=== PATIENT | female | born 1940 | race Caucasian/White ===

== ENCOUNTER 2017-10-11 19:00 | Emergency (ER) | payer MEDICARE, OTHER ==
[2017-10-11] MEDS ORDERED: ASPIRIN 81 MG TABLET, CHEWABLE PO ONE (19:28)
--- NOTE | 2017-10-11 19:28 | ER Document Report ---
ED General - General Chief Complaint: Chest Pain > 30 Stated Complaint: CHEST PAIN Time Seen by Provider: 10/11/17 19:27 Notes: Patient is a 77 year old female who presents to the ED complaining of sudden onset chest pressure with associated shortness of breath 1 hour prior to arrival while she is cooking dinner. Describes it as a 4 out of 5 in severity. She denies any cough, burning pain, substernal pain. She denies any wheezing or history of lung disease. she states that she took 1 sublingual nitro which brought her symptoms down to 2 out of 5 prior to my introduction she is now symptom-free. She states that she was not doing anything exertional to standing in her kitchen cooking. Past medical history significant for an KS in September 2016 required coronary cath and stent placement, this was completed in [place]. She is also on Brilinta. Patient recently moved down here in June Past medical history significant for coronary artery disease history with an KS in September 2016, insulin-dependent diabetes, hypertension, hyperlipidemia Past surgical history significant for previous low back surgery, previous renal procedure, coronary cath in 2016, cholecystectomy Social history denies any tobacco, alcohol or drug use Primary care is with Cyrus Franco. Labor Expediter is Chen Herrera TRAVEL OUTSIDE OF THE U.S. IN LAST 30 DAYS: No - Related Data Allergies/Adverse Reactions: Sulfa (Sulfonamide Antibiotics) Allergy (Verified 10/11/17 19:01) Past Medical History - Social History Smoking Status: Never Smoker Family History: Reviewed & Not Pertinent Review of Systems - Review of Systems Constitutional: No symptoms reported Cardiovascular: See HPI Respiratory: See HPI Gastrointestinal: No symptoms reported Musculoskeletal: No symptoms reported Neurological/Psychological: No symptoms reported -: Yes All other systems reviewed and negative Physical Exam - Vital signs Vitals: Pulse Resp Pulse Ox 84 18 100 10/11/17 19:03 10/11/17 19:03 10/11/17 19:03 - Notes Notes: PHYSICAL EXAM GENERAL: Alert, interacts well. HEAD: Normocephalic, atraumatic. EYES: Pupils equal, round, and reactive to light. Extraocular movements intact. ENT: Oral mucosa moist, tongue midline. NECK: Full range of motion. Supple. Trachea midline. LUNGS: Clear to auscultation bilaterally, no wheezes, rales, or rhonchi. No respiratory distress. HEART: Regular rate and rhythm. No murmurs, gallops, or rubs. ABDOMEN: Soft, nondistended, nontender. No guarding, rebound, or rigidity.. Bowel sounds present in all 4 quadrants. EXTREMITIES: Moves all 4 extremities spontaneously. No edema, radial and dorsalis pedis pulses 2/4 bilaterally. No cyanosis. NEUROLOGICAL: Alert and oriented x4. Normal speech. PSYCH: Normal affect, normal mood. SKIN: Warm, dry, normal turgor. No rashes or lesions noted. Course - Re-evaluation Re-evalutation: 10/11/17 19:41 Patient is a 77-year-old female who is hemodynamically stable, no acute distress and afebrile. Patient initially was chest pressure 2 out of 5 in severity after sublingual nitro at home. Upon revisitation prior to additional nitro administration, patient states that she is now completely chest pain- free. Patient was given dose of aspirin. Discussed patient with hospitalist Dr. Roberts who is requesting repeat troponins prior to admission. Discussed with patient to alert us if she has return of symptoms. 10/11/17 23:56 Patient remains chest pain-free. Repeat troponin elevated at 0.131. Discussed with admitting hospitalist and due to the fact we do not have cardiology transition social worker for access to the [employer] at our facility, patient will require transport for non-STEMI. 10/12/17 00:23 Patient has been accepted to [facility] under Dr Beard. Will initiate lovenox, lipotor and give her night brilinta. Bed status pending. 10/12/17 02:20 Transport has arrived for the patient. Upon my reassessment, she denies any shortness of breath, chest pressure. Lungs are clear to auscultation without any alarms noted on telemetry. Patient is stable for transport - Vital Signs Vital signs: Temp Pulse Resp BP Pulse Ox 97.6 F 80 19 124/61 97 10/11/17 19:10 10/11/17 19:10 10/12/17 02:01 10/12/17 02:01 10/12/17 02:01 - Laboratory Result Diagrams: 10/11/17 19:34 10/11/17 19:34 Laboratory results interpreted by me: 10/11/17 10/11/17 19:34 19:34 Seg Neutrophils % 38.5 L Monocytes % 14.0 H Est GFR (Non-Af Amer) 51 L Glucose 180 H Creatine Kinase 177 H - Diagnostic Test Radiology reviewed: Image reviewed, Reports reviewed - EKG Interpretation by Me EKG shows normal: Sinus rhythm Rate: Normal Rhythm: NSR [place]/QRS: RBBB When compared to previous EKG there are: Previous EKG unavailable - Patient new to our facility Discharge - Discharge Clinical Impression: Non-STEMI (non-ST elevated myocardial infarction) Condition: Stable Disposition: [facility] Referrals: CYRUS FRANCO NP [Primary Care Provider] - Follow up as needed
[2017-10-11] MEDS ORDERED: NITROGLYCERIN 0.4 MG/TAB 25 TAB/BOTTLE SL PRN (19:40)
[2017-10-11 19:48] LABS: ABSOLUTE BASOPHILS # (AUTO) 0.1 10^3/uL (0.0-0.2); ABSOLUTE EOSINOPHILS # (AUTO) 0.2 10^3/uL (0.0-0.6); ABSOLUTE LYMPHOCYTES (AUTO) 2.5 10^3/uL (0.5-4.7); ABSOLUTE MONOCYTES (AUTO) 0.8 10^3/uL (0.1-1.4); ABSOLUTE NEUT (AUTO) 2.2 10^3/uL (1.7-8.2); BASOPHILS % (AUTO) 1.1 % (0-2); EOSINOPHILS % (AUTO) 3.7 % (0-6); HEMATOCRIT 36.3 % (36.0-47.0); HEMOGLOBIN 12.2 g/dL (12.0-15.5); LYMPHOCYTES % (AUTO) 42.7 % (13-45); MEAN CORPUSCULAR HEMOGLOBIN 30.8 pg (27.0-33.4); MEAN CORPUSCULAR HGB CONC 33.6 g/dL (32.0-36.0); MEAN CORPUSCULAR VOLUME 92 fl (80-97); PLATELET COUNT 266 10^3/uL (150-450); RED BLOOD COUNT 3.95 10^6/uL (3.72-5.28); RED CELL DISTRIBUTION WIDTH 13.7 % (11.5-14.0); SEGMENTED NEUTROPHILS % (AUTO) 38.5 % (42-78); TOTAL CELLS COUNTED % (AUTO) 100 %; WHITE BLOOD COUNT 5.8 10^3/uL (4.0-10.5)
[2017-10-11 20:05] LABS: ALANINE AMINOTRANSFERASE 33 U/L (9-52); ALBUMIN 4.5 g/dL (3.5-5.0); ALKALINE PHOSPHATASE 63 U/L (38-126); ANION GAP 9 (5-19); ASPARTATE AMINO TRANSFERASE 28 U/L (14-36); BILIRUBIN,DIRECT 0.2 mg/dL (0.0-0.4); BILIRUBIN,TOTAL 0.3 mg/dL (0.2-1.3); BLOOD UREA NITROGEN 19 mg/dL (7-20); CALCIUM 9.9 mg/dL (8.4-10.2); CARBON DIOXIDE 29 mmol/L (22-30); CHLORIDE 101 mmol/L (98-107); CREATINE KINASE 177 U/L (30-135); GLUCOSE 180 mg/dL (75-110); POTASSIUM 4.6 mmol/L (3.6-5.0); SODIUM 138.5 mmol/L (137-145); TOTAL PROTEIN 7.5 g/dL (6.3-8.2)
--- NOTE | 2017-10-11 20:06 | RADIOLOGY REPORT (SQ) ---
EXAM DESCRIPTION: CHEST SINGLE VIEW COMPLETED DATE/TIME: 10/11/2017 7:57 pm REASON FOR STUDY: chest pain COMPARISON: None. EXAM PARAMETERS: NUMBER OF VIEWS: One view. TECHNIQUE: Single frontal radiographic view of the chest acquired. RADIATION DOSE: NA LIMITATIONS: None. FINDINGS: LUNGS AND PLEURA: No opacities, masses or pneumothorax. No pleural effusion. MEDIASTINUM AND HILAR STRUCTURES: No masses. Contour normal. HEART AND VASCULAR STRUCTURES: Heart normal in size. Normal vasculature. BONES: No acute findings. HARDWARE: Median sternotomy wires are present. A curvilinear hyperdensity projecting in the midline over the superior mediastinum is of uncertain etiology or significance. OTHER: No other significant finding. IMPRESSION: NO ACUTE RADIOGRAPHIC FINDING IN THE CHEST. A curvilinear density projecting over the s uperior mediastinum in the midline is of uncertain etiology or significance. TECHNICAL DOCUMENTATION: JOB ID: [id number] [employer]- All Rights Reserved
[2017-10-11 20:17] LABS: CREATINE KINASE MB 2.66 ng/mL (<4.55); TROPONIN I 0.021 ng/mL
[2017-10-12] MEDS ORDERED: ATORVASTATIN CALCIUM 80 MG TABLET PO ONE (00:16)
[2017-10-12] MEDS ORDERED: TICAGRELOR 90 MG TABLET PO SCH (00:30)
[2017-10-12] MEDS ORDERED: ENOXAPARIN SODIUM INJ 80 MG/0.8 ML DISP.SYRIN SUBCUT SCH (00:30)
[2017-10-12] MEDS ORDERED: TICAGRELOR 90 MG TABLET ONE (01:29)
[2017-10-12 02:26] VITALS: BP 124/61
--- NOTE | 2017-10-12 08:37 | EKG REPORT ---
SEVERITY:- ABNORMAL ECG - SINUS RHYTHM RIGHT BUNDLE BRANCH BLOCK : Confirmed by: Pedro Noriega MD 12-Oct-2017 08:35:45
== END 2017-10-12 02:35 | disposition short-term general hospital (02) ==
LOC: ER 19:00
DX: I21.4 Non-ST elevation (NSTEMI) myocardial infarction (principal); R07.9 Chest pain, unspecified; R06.02 Shortness of breath; I25.10 Atherosclerotic heart disease of native coronary artery without angina pectoris; I25.2 Old myocardial infarction; E11.9 Type 2 diabetes mellitus without complications; I10 Essential (primary) hypertension; E78.5 Hyperlipidemia, unspecified; Z79.4 Long term (current) use of insulin; Z90.49 Acquired absence of other specified parts of digestive tract
CPT/HCPCS: 93005; 99285; 96372; 36415; 82553; 82550; 85025; 80053; 84484; 71045; 93010; A9270 ×3; J1650; J3490

== ENCOUNTER → 2018-01-05 | Outpatient (CLI) | payer MEDICARE, OTHER ==
[2018-01-05 17:56] LABS: NT PRO BNP 380 pg/mL (<450)
[2018-01-05 18:00] LABS: TROPONIN I < 0.012 ng/mL
== END ==
LOC: OD 16:45
PROVIDERS: ATTEND Obstetrics & Gynecology
DX: R06.02 Shortness of breath (principal); R05 Cough; I25.2 Old myocardial infarction
CPT/HCPCS: 36415; 83880; 84484; 85379

== ENCOUNTER 2018-01-15 11:40 | Emergency (ER) | payer MEDICARE, OTHER ==
[2018-01-15] MEDS ORDERED: ASPIRIN 81 MG TABLET, CHEWABLE PO ONE (11:51)
[2018-01-15] MEDS ORDERED: NITROGLYCERIN/D5W 50 MG/250 ML RTUINJ IV ONE (11:57)
--- NOTE | 2018-01-15 11:57 | ER Document Report ---
ED General - General Chief Complaint: Chest Pain Stated Complaint: CHEST PAIN Time Seen by Provider: 01/15/18 11:51 Mode of Arrival: Ambulatory Information source: Patient, [facility] Records Notes: 77-year-old female presents with severe chest pain midsternal associated with shortness of breath of 3-4 hour duration. Patient denies any fevers or chills denies any nausea vomiting or diarrhea. Patient states she had an NSTEMI approximately 3 months ago Patient took 2 nitroglycerin prior to arrival notes pain has not improved TRAVEL OUTSIDE OF THE [place]. IN LAST 30 DAYS: No - HPI Onset: Just prior to arrival Onset/Duration: Sudden Quality of pain: Pressure Severity: Severe Pain Level: 5 Associated symptoms: Chest pain Exacerbated by: Denies Relieved by: Denies Similar symptoms previously: Yes Recently seen / treated by doctor: Yes - Related Data Allergies/Adverse Reactions: Sulfa (Sulfonamide Antibiotics) Allergy (Verified 01/15/18 12:49) Past Medical History - Social History Smoking Status: Never Smoker Cigarette use (# per day): No Chew tobacco use (# tins/day): No Smoking Education Provided: No Family History: Reviewed & Not Pertinent - Past Medical History Cardiac Medical History: Reports: Hx Heart Attack, Hx Hypertension Endocrine Medical History: Reports: Hx Diabetes Mellitus Type 1 Renal/ Medical History: Denies: Hx Peritoneal Dialysis Past Surgical History: Reports: Hx Cardiac Catheterization - stent x1, Hx Cardiac Surgery - open heart, Hx Cholecystectomy, Hx Kidney (Renal Surgery), Hx Orthopedic Surgery - back Review of Systems - Review of Systems Notes: REVIEW OF SYSTEMS: CONSTITUTIONAL : Denies fever, chills, or sweats. Denies recent illness. EENT: Denies eye, ear, throat, or mouth pain or symptoms. Denies nasal or sinus congestion or discharge. Denies throat, tongue, or mouth swelling or difficulty swallowing. CARDIOVASCULAR: Admits to severe chest pain RESPIRATORY: Denies cough, cold, or chest congestion. Denies shortness of breath, difficulty breathing, or wheezing. GASTROINTESTINAL: Denies abdominal pain or distention. Denies nausea, vomiting , or diarrhea. Denies blood in vomitus, stools, or per rectum. Denies black, tarry stools. Denies constipation. GENITOURINARY: Denies difficulty urinating, painful urination, burning, frequency, blood in urine, or discharge. FEMALE GENITOURINARY: Denies vaginal bleeding, heavy or abnormal periods, irregular periods. Denies vaginal discharge or odor. MUSCULOSKELETAL: Denies back or neck pain or stiffness. Denies joint pain or swelling. SKIN: Denies rash, lesions or sores. HEMATOLOGIC : Denies easy bruising or bleeding. LYMPHATIC: Denies swollen, enlarged glands. NEUROLOGICAL: Denies confusion or altered mental status. Denies passing out or loss of consciousness. Denies dizziness or lightheadedness. Denies headache. Denies weakness or paralysis or loss of use of either side. Denies problems with gait or speech. Denies sensory loss, numbness, or tingling. Denies seizures. PSYCHIATRIC: Denies anxiety or stress. Denies depression, suicidal ideation, or homicidal ideation. ALL OTHER SYSTEMS REVIEWED AND NEGATIVE. PHYSICAL EXAMINATION: GENERAL: Well-appearing, well-nourished and in significant chest pain shortness HEAD: Atraumatic, normocephalic. EYES: Pupils equal round and reactive to light, extraocular movements intact, conjunctiva are normal. ENT: Nares patent, oropharynx clear without exudates. Moist mucous membranes. NECK: Normal range of motion, supple without lymphadenopathy LUNGS: Breath sounds clear to auscultation bilaterally and equal. No wheezes rales or rhonchi. HEART: Regular rate and rhythm without murmurs ABDOMEN: Soft, nontender, nondistended abdomen. No guarding, no rebound. No masses appreciated. Female : deferred Musculoskeletal: Normal range of motion, no pitting or edema. No cyanosis. NEUROLOGICAL: Cranial nerves grossly intact. Normal speech, normal gait. Normal sensory, motor exams PSYCH: Normal mood, normal affect. SKIN: Warm, Dry, normal turgor, no rashes or lesions noted. Dictation was performed using [employer] voice recognition software Physical Exam - Vital signs Vitals: Resp Pulse Ox 17 97 01/15/18 11:54 01/15/18 11:54 Course - Re-evaluation Re-evalutation: 01/15/18 11:56 concern for stemi, pt took 2 nitro , she had nstemi in oct and stent to [place] I called called STEMI hotline new 01/15/18 11:57 CABG, diffuse cardiac disease, severe stent occlusions I will therefore give thrombolytics with patient and husbands permission - Vital Signs Vital signs: Temp Pulse Resp BP Pulse Ox 97.4 F 19 115/91 H 100 01/15/18 12:33 01/15/18 12:36 01/15/18 12:36 01/15/18 12:36 - Laboratory Result Diagrams: 01/15/18 12:00 01/15/18 12:00 Laboratory results interpreted by me: 01/15/18 12:00 Est GFR (Non-Af Amer) 54 L Glucose 217 H - Diagnostic Test Radiology reviewed: Image reviewed - chest xray notes no acute abnormality, Reports reviewed - EKG Interpretation by Me EKG shows normal: Sinus rhythm, [place], Intervals, QRS Complexes, ST-T Waves - ST elevation in lead III minimal elevation in aVF significant depression multiple leads Critical Care Note - Critical Care Note Total time excluding time spent on procedures (mins): 40 Comments: 40 minutes of critical care time spent in direct contact evaluating and reevaluating the patient, treating symptoms, reviewing labs and studies and speaking with family and consultants excluding any procedures Discharge - Discharge Clinical Impression: STEMI (ST elevation myocardial infarction) Qualifiers: Involved coronary artery: unspecified coronary artery Qualified Code(s): I21.3 - ST elevation (STEMI) myocardial infarction of unspecified site Condition: Fair Disposition: [facility] Referrals: CYRUS FRANCO NP [Primary Care Provider] - Follow up as needed
[2018-01-15] MEDS ORDERED: ENOXAPARIN SODIUM INJ 80 MG/0.8 ML DISP.SYRIN SUBCUT ONE (12:10)
[2018-01-15 12:13] LABS: ABSOLUTE BASOPHILS # (AUTO) 0.1 10^3/uL (0.0-0.2); ABSOLUTE EOSINOPHILS # (AUTO) 0.2 10^3/uL (0.0-0.6); ABSOLUTE MONOCYTES (AUTO) 0.9 10^3/uL (0.1-1.4); ABSOLUTE NEUT (AUTO) 6.3 10^3/uL (1.7-8.2); BASOPHILS % (AUTO) 0.7 % (0-2); EOSINOPHILS % (AUTO) 1.8 % (0-6); HEMATOCRIT 37.5 % (36.0-47.0); HEMOGLOBIN 12.9 g/dL (12.0-15.5); LYMPHOCYTES % (AUTO) 20.9 % (13-45); MEAN CORPUSCULAR HGB CONC 34.4 g/dL (32.0-36.0); MEAN CORPUSCULAR VOLUME 90 fl (80-97); MONOCYTES % (AUTO) 9.2 % (3-13); PLATELET COUNT 295 10^3/uL (150-450); RED BLOOD COUNT 4.16 10^6/uL (3.72-5.28); RED CELL DISTRIBUTION WIDTH 13.5 % (11.5-14.0); SEGMENTED NEUTROPHILS % (AUTO) 67.4 % (42-78); TOTAL CELLS COUNTED % (AUTO) 100 %; WHITE BLOOD COUNT 9.4 10^3/uL (4.0-10.5)
--- NOTE | 2018-01-15 12:25 | RADIOLOGY REPORT (SQ) ---
EXAM DESCRIPTION: CHEST SINGLE VIEW COMPLETED DATE/TIME: 01/15/2018 12:15 pm REASON FOR STUDY: chest pain COMPARISON: 10/11/2017 EXAM PARAMETERS: NUMBER OF VIEWS: One view. TECHNIQUE: Single frontal radiographic view of the chest acquired. RADIATION DOSE: NA LIMITATIONS: None. FINDINGS: LUNGS AND PLEURA: No opacities, masses or pneumothorax. No pleural effusion. MEDIASTINUM AND HILAR STRUCTURES: No masses. Contour normal. HEART AND VASCULAR STRUCTURES: Stable cardiomegaly. BONES: No acute findings. HARDWARE: CABG. OTHER: No other significant finding. IMPRESSION: NO ACUTE RADIOGRAPHIC FINDING IN THE CHEST. TECHNICAL DOCUMENTATION: JOB ID: [id number] [employer]- All Rights Reserved Reading location - IP/workstation name: [email or web address]
[2018-01-15 12:40] LABS: ALANINE AMINOTRANSFERASE 22 U/L (9-52); ALKALINE PHOSPHATASE 72 U/L (38-126); ANION GAP 13 (5-19); ASPARTATE AMINO TRANSFERASE 24 U/L (14-36); BILIRUBIN,DIRECT 0.4 mg/dL (0.0-0.4); BILIRUBIN,TOTAL 0.6 mg/dL (0.2-1.3); BLOOD UREA NITROGEN 14 mg/dL (7-20); CALCIUM 9.9 mg/dL (8.4-10.2); CARBON DIOXIDE 29 mmol/L (22-30); CHLORIDE 102 mmol/L (98-107); CREATINE KINASE 82 U/L (30-135); GLUCOSE 217 mg/dL (75-110); POTASSIUM 4.9 mmol/L (3.6-5.0); SODIUM 144.3 mmol/L (137-145); TOTAL PROTEIN 7.3 g/dL (6.3-8.2)
[2018-01-15 12:46] LABS: CREATINE KINASE MB 2.18 ng/mL (<4.55); TROPONIN I 0.025 ng/mL
[2018-01-15 12:48] VITALS: BP 115/91
--- NOTE | 2018-01-15 13:32 | EKG REPORT ---
SEVERITY:- ABNORMAL ECG - SINUS RHYTHM FIRST DEGREE AV BLOCK RIGHT BUNDLE BRANCH BLOCK PROBABLE INFERIOR INFARCT, AGE INDETERMINATE ST DEPRESSION, CONSIDER ISCHEMIA, ANT-LAT LDS : Confirmed by: Pedro Noriega MD 15-Jan-2018 13:31:47
--- NOTE | 2018-01-15 13:32 | EKG REPORT ---
SEVERITY:- ABNORMAL ECG - SINUS RHYTHM RIGHT BUNDLE BRANCH BLOCK PROBABLE INFERIOR INFARCT, AGE INDETERMINATE : Confirmed by: Pedro Noriega MD 15-Jan-2018 13:31:08
[2018-01-15] MEDS ORDERED: ENOXAPARIN SODIUM INJ 30 MG/0.3 ML DISP.SYRIN ONE (14:50)
[2018-01-15] MEDS ORDERED: TENECTEPLASE INJ 50 MG KIT IV ONE (14:50)
[2018-01-15] MEDS ORDERED: NITROGLYCERIN 0.4 MG/TAB 25 TAB/BOTTLE ONE (14:50)
[2018-01-15] MEDS ORDERED: CLOPIDOGREL BISULFATE 75 MG TABLET ONE (14:50)
== END 2018-01-15 12:54 | disposition short-term general hospital (02) ==
LOC: ER 11:40
DX: I21.3 ST elevation (STEMI) myocardial infarction of unspecified site (principal); R07.9 Chest pain, unspecified; R06.02 Shortness of breath; I10 Essential (primary) hypertension; E10.9 Type 1 diabetes mellitus without complications; Z88.2 Allergy status to sulfonamides; I25.2 Old myocardial infarction; Z90.49 Acquired absence of other specified parts of digestive tract
CPT/HCPCS: 93005 ×2; 99291; 96372; 96365; 36415; 82553; 82550; 85025; 80053; 84484; 71045; 93010; J3101; J1650 ×2; J3490; A9270

== ENCOUNTER → 2018-01-23 | Outpatient (CLI) | payer MEDICARE, OTHER ==
--- NOTE | 2018-01-23 12:57 | RADIOLOGY REPORT (SQ) ---
EXAM DESCRIPTION: CHEST PA/LATERAL COMPLETED DATE/TIME: 01/23/2018 12:40 pm REASON FOR STUDY: HEMOPTYSIS,PNEUMONIA, UNSPECIFIED ORGANISM COMPARISON: AP chest 01/15/2018, 10/11/2017 EXAM PARAMETERS: NUMBER OF VIEWS: two views TECHNIQUE: Digital Frontal and Lateral radiographic views of the chest acquired. RADIATION DOSE: NA LIMITATIONS: none FINDINGS: LUNGS AND PLEURA: No opacities, masses or pneumothorax. No pleural effusion. MEDIASTINUM AND HILAR STRUCTURES: No masses or contour abnormalities. HEART AND VASCULAR STRUCTURES: No cardiomegaly. Old sternotomy for CABG BONES: No acute findings. HARDWARE: None in the chest. OTHER: No other significant finding. IMPRESSION: NO SIGNIFICANT RADIOGRAPHIC FINDING IN THE CHEST. TECHNICAL DOCUMENTATION: JOB ID: [id number] [employer]- All Rights Reserved Reading location - IP/workstation name: [email or web address]
[2018-01-23 13:08] LABS: HEMATOCRIT 33.9 % (36.0-47.0); HEMOGLOBIN 11.6 g/dL (12.0-15.5); MEAN CORPUSCULAR HEMOGLOBIN 30.6 pg (27.0-33.4); MEAN CORPUSCULAR VOLUME 90 fl (80-97); PLATELET COUNT 329 10^3/uL (150-450); RED BLOOD COUNT 3.78 10^6/uL (3.72-5.28); RED CELL DISTRIBUTION WIDTH 12.9 % (11.5-14.0); WHITE BLOOD COUNT 7.6 10^3/uL (4.0-10.5)
[2018-01-23 13:45] LABS: ALANINE AMINOTRANSFERASE 24 U/L (9-52); ALBUMIN 4.2 g/dL (3.5-5.0); ALKALINE PHOSPHATASE 65 U/L (38-126); ANION GAP 12 (5-19); ASPARTATE AMINO TRANSFERASE 25 U/L (14-36); BILIRUBIN,DIRECT 0.5 mg/dL (0.0-0.4); BILIRUBIN,TOTAL 1.4 mg/dL (0.2-1.3); BLOOD UREA NITROGEN 14 mg/dL (7-20); CALCIUM 9.8 mg/dL (8.4-10.2); CARBON DIOXIDE 33 mmol/L (22-30); CHLORIDE 95 mmol/L (98-107); GLUCOSE 161 mg/dL (75-110); POTASSIUM 4.1 mmol/L (3.6-5.0); SODIUM 139.8 mmol/L (137-145); TOTAL PROTEIN 7.4 g/dL (6.3-8.2)
[2018-01-24 16:53] LABS: EPSTEIN BARR EARLY AG IGG AB <9.0 U/mL (0.0-8.9); EPSTEIN BARR VCA IGG AB >600.0 U/mL (0.0-17.9); EPSTEIN BARR VCA IGM AB <36.0 U/mL (0.0-35.9)
== END ==
LOC: OD 12:05
PROVIDERS: ATTEND Obstetrics & Gynecology
DX: J18.9 Pneumonia, unspecified organism (principal); R04.2 Hemoptysis; I25.10 Atherosclerotic heart disease of native coronary artery without angina pectoris; I25.2 Old myocardial infarction; I50.9 Heart failure, unspecified; R05 Cough; E11.9 Type 2 diabetes mellitus without complications; Z79.4 Long term (current) use of insulin; R53.83 Other fatigue
CPT/HCPCS: 36415; 71046; 80053; 83880; 85027; 86256; 86663; 86664; 86665

== ENCOUNTER 2019-01-15 11:10 | Observation (INO) | payer MEDICARE, OTHER ==
--- NOTE | 2019-01-15 11:54 | ER Document Report ---
ED Medical Screen (RME) - General Chief Complaint: Facial Droop Stated Complaint: WEAKNESS Time Seen by Provider: 01/15/19 11:52 Primary Care Provider: BESS FRANCO MD [Primary Care Provider] - Follow up as needed Mode of Arrival: Ambulatory Information source: Patient Notes: Patient presents complaining of right facial droop that she is uncertain if it started yesterday or may be the day prior. Patient states that this time she did have a mild headache. Patient was sent here from her primary doctor's office for evaluation for possible stroke. 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 Patient does take Brilinta after having an MO with bypass x3 as well as stents. I have greeted and performed a rapid initial assessment of this patient. A comprehensive ED assessment and evaluation of the patient, analysis of test results and completion of the medical decision making process will be conducted by additional ED providers. TRAVEL OUTSIDE OF THE [place] IN LAST 30 DAYS: No - Related Data Allergies/Adverse Reactions: Sulfa (Sulfonamide Antibiotics) Allergy (Verified 01/15/19 11:11) Past Medical History - Social History Chew tobacco use (# tins/day): No Frequency of alcohol use: None Drug Abuse: None - Past Medical History Cardiac Medical History: Reports: Hx Heart Attack, Hx Hypertension Endocrine Medical History: Reports: Hx Diabetes Mellitus Type 1 Renal/ Medical History: Denies: Hx Peritoneal Dialysis Past Surgical History: Reports: Hx Cardiac Catheterization - stent x1, Hx Cardiac Surgery - open heart, Hx Cholecystectomy, Hx Kidney (Renal Surgery), Hx Orthopedic Surgery - back Physical Exam - Vital signs Vitals: Temp Pulse Resp BP Pulse Ox 97.8 F 59 L 15 167/90 H 100 01/15/19 11:20 01/15/19 11:20 01/15/19 11:20 01/15/19 11:20 01/15/19 11:20 - General Notes: Right facial droop, patient unable to close right eye completely Course - Vital Signs Vital signs: Temp Pulse Resp BP Pulse Ox 97.8 F 59 L 15 167/90 H 100 01/15/19 11:20 01/15/19 11:20 01/15/19 11:20 01/15/19 11:20 01/15/19 11:20 Doctor's Discharge - Discharge Referrals: BESS FRANCO MD [Primary Care Provider] - Follow up as needed
--- NOTE | 2019-01-15 12:16 | RADIOLOGY REPORT (SQ) ---
EXAM DESCRIPTION: CT HEAD WITHOUT COMPLETED DATE/TIME: 01/15/2019 12:01 pm REASON FOR STUDY: r facial droop COMPARISON: None. TECHNIQUE: Axial images acquired through the brain without intravenous contrast. Images reviewed wi th bone, brain and subdural windows. Images stored on PACS. All CT scanners at this facility use dose modulation, iterative reconstruction, and/or weight based d osing when appropriate to reduce radiation dose to as low as reasonably achievable (ALARA). [facility]: Dose Right [facility]: CareDose [facility]: Dose Right [facility]: Teradose 4D [facility]: Smart Appreciation Engine RADIATION DOSE: CT Rad equipment meets quality standard of care and radiation dose reduction techniq ues were employed. CTDIvol: 53.2 mGy. DLP: 964 mGy-cm. mGy. LIMITATIONS: None. FINDINGS: VENTRICLES: Age-appropriate. CEREBRUM: No masses. No hemorrhage. No midline shift. Areas of low density in the white matter, gr eatest in the left frontotemporal area consistent with micro-vascular ischemic change, age undetermin ed. CEREBELLUM: No masses. No hemorrhage. No alteration of density. No evidence for acute infarction. EXTRAAXIAL SPACES: Mild age-related involutional change. No fluid collections. No masses. ORBITS AND GLOBE: No intra- or extraconal masses. Normal contour of globe without masses. CALVARIUM: No fracture. PARANASAL SINUSES: No fluid or mucosal thickening. SOFT TISSUES: No mass or hematoma. OTHER: No other significant finding. IMPRESSION: Areas of low density in the white matter, greatest in the left frontotemporal area consi stent with micro-vascular ischemic change, age undetermined, given lack of comparison images cannot e xclude subacute lacunar infarct. Consider MRI to further assess. No hemorrhage. No midline shift. EVIDENCE OF ACUTE STROKE: Possible LEFT MCA TECHNICAL DOCUMENTATION: JOB ID: [id number] Quality ID # [id number]: Final reports with documentation of one or more dose reduction techniques (e.g., Au tomated exposure control, adjustment of the mA and/or kV according to patient size, use of iterative reconstruction technique) 2010 [employer]- All Rights Reserved Reading location - IP/workstation name: [email or web address]
--- NOTE | 2019-01-15 12:26 | RADIOLOGY REPORT (SQ) ---
EXAM DESCRIPTION: CHEST SINGLE VIEW COMPLETED DATE/TIME: 01/15/2019 12:06 pm REASON FOR STUDY: r facial droop COMPARISON: 01/23/2018 NUMBER OF VIEWS: One view. TECHNIQUE: Single frontal radiographic view of the chest acquired. LIMITATIONS: None. FINDINGS: LUNGS AND PLEURA: No acute opacities, masses or pneumothorax. No pleural effusion. MEDIASTINUM AND HILAR STRUCTURES: Stable contour. HEART AND VASCULAR STRUCTURES: Heart normal in size. Normal vasculature. Prior CABG. BONES: No acute findings. HARDWARE: CABG hardware. OTHER: No other significant finding. IMPRESSION: No acute findings. TECHNICAL DOCUMENTATION: JOB ID: [id number] 2010 [employer]- All Rights Reserved Reading location - IP/workstation name: [email or web address]
[2019-01-15 12:46] LABS: ABSOLUTE BASOPHILS # (AUTO) 0.1 10^3/uL (0.0-0.2); ABSOLUTE EOSINOPHILS # (AUTO) 0.4 10^3/uL (0.0-0.6); ABSOLUTE LYMPHOCYTES (AUTO) 2.3 10^3/uL (0.5-4.7); ABSOLUTE MONOCYTES (AUTO) 0.8 10^3/uL (0.1-1.4); ABSOLUTE NEUT (AUTO) 2.3 10^3/uL (1.7-8.2); BASOPHILS % (AUTO) 1.3 % (0-2); EOSINOPHILS % (AUTO) 6.9 % (0-6); HEMATOCRIT 40.2 % (36.0-47.0); HEMOGLOBIN 13.5 g/dL (12.0-15.5); LYMPHOCYTES % (AUTO) 39.7 % (13-45); MEAN CORPUSCULAR HEMOGLOBIN 30.5 pg (27.0-33.4); MEAN CORPUSCULAR HGB CONC 33.5 g/dL (32.0-36.0); MEAN CORPUSCULAR VOLUME 91 fl (80-97); MONOCYTES % (AUTO) 12.8 % (3-13); PLATELET COUNT 296 10^3/uL (150-450); RED BLOOD COUNT 4.42 10^6/uL (3.72-5.28); RED CELL DISTRIBUTION WIDTH 13.8 % (11.5-14.0); SEGMENTED NEUTROPHILS % (AUTO) 39.3 % (42-78); TOTAL CELLS COUNTED % (AUTO) 100 %; WHITE BLOOD COUNT 5.9 10^3/uL (4.0-10.5)
[2019-01-15 12:47] LABS: INTERNATIONAL RATION (INR) 0.91; PROTHROMBIN TIME 12.7 SEC (11.4-15.4)
[2019-01-15 12:48] LABS: PARTIAL THROMBOPLASTIN TIME 38.8 SEC (23.5-35.8)
[2019-01-15 13:17] LABS: ALANINE AMINOTRANSFERASE 96 U/L (9-52); ALBUMIN 4.1 g/dL (3.5-5.0); ALKALINE PHOSPHATASE 149 U/L (38-126); ANION GAP 12 (5-19); ASPARTATE AMINO TRANSFERASE 81 U/L (14-36); BILIRUBIN,DIRECT 0.4 mg/dL (0.0-0.4); BILIRUBIN,TOTAL 1.1 mg/dL (0.2-1.3); BLOOD UREA NITROGEN 15 mg/dL (7-20); CARBON DIOXIDE 27 mmol/L (22-30); CHLORIDE 100 mmol/L (98-107); CREATINE KINASE 77 U/L (30-135); GLUCOSE 183 mg/dL (75-110); POTASSIUM 4.6 mmol/L (3.6-5.0); SODIUM 138.9 mmol/L (137-145); TOTAL PROTEIN 7.7 g/dL (6.3-8.2)
[2019-01-15 13:28] LABS: CREATINE KINASE MB 1.64 ng/mL (<4.55)
[2019-01-15 13:29] LABS: TROPONIN I < 0.012 ng/mL
[2019-01-15] MEDS ORDERED: ASPIRIN 325 MG TABLET PO ONE (13:54)
--- NOTE | 2019-01-15 13:55 | ER Document Report ---
ED Neuro Symptoms/Deficit - General Chief Complaint: Facial Droop Stated Complaint: WEAKNESS Time Seen by Provider: 01/15/19 11:52 Primary Care Provider: BESS FRANCO MD [Primary Care Provider] - Follow up as needed Mode of Arrival: Ambulatory Information source: Patient TRAVEL OUTSIDE OF THE [place] IN LAST 30 DAYS: No - HPI Patient complains to provider of: Facial Droop Notes: Patient here with complaints of right-sided facial droop that started yesterday morning. She states that she went to bed 2 nights ago fine when she woke up she noticed a right-sided facial droop. She went to her primary care doctor's office today and was sent to the ER for evaluation. She denies any numbness, tingling, weakness to the upper or lower extremities. She denies any severe headache. No blurred or loss vision. No chest pain or shortness of breath. No nausea, vomiting, diarrhea. Patient's had prior UT and has [address] She is on Brilinta as well as aspirin. She denies any head injury. She denies any abdominal pain. No rash. No fever. No other complaints at this time. - Related Data Allergies/Adverse Reactions: Sulfa (Sulfonamide Antibiotics) Allergy (Verified 01/15/19 11:11) Past Medical History - General Information source: Patient - Social History Smoking Status: Never Smoker Chew tobacco use (# tins/day): No Frequency of alcohol use: None Drug Abuse: None Family History: Reviewed & Not Pertinent Patient has suicidal ideation: No Patient has homicidal ideation: No - Past Medical History Cardiac Medical History: Reports: Hx Heart Attack, Hx Hypertension Endocrine Medical History: Reports: Hx Diabetes Mellitus Type 1 Renal/ Medical History: Denies: Hx Peritoneal Dialysis Past Surgical History: Reports: Hx Cardiac Catheterization - stent x1, Hx Cardiac Surgery - open heart, Hx Cholecystectomy, Hx Kidney (Renal Surgery), Hx Orthopedic Surgery - back Review of Systems - Review of Systems -: Yes All other systems reviewed and negative Physical Exam - Vital signs Vitals: Temp Pulse Resp BP Pulse Ox 97.8 F 59 L 15 167/90 H 100 01/15/19 11:20 01/15/19 11:20 01/15/19 11:20 01/15/19 11:20 01/15/19 11:20 - Notes Notes: GENERAL: alert, cooperative, nontoxic, no distress. HEAD: normocephalic, atraumatic EYES: conjunctiva pink without discharge, no external redness or swelling. Pupils are equal, round, reactive to light. EARS: no external swelling, no external redness NOSE: atraumatic, no external swelling MOUTH/THROAT: mucous membranes moist and pink, posterior pharynx without erythema, swelling, exudate. No trismus or drooling. NECK: soft, supple, full range of motion, no meningismus. CHEST: no distress, lungs clear and equal throughout. No wheezing, rales, rhonchi. CARDIAC: regular rate and rhythm, no murmur, normal capillary refill, normal pu lses. No peripheral edema noted. BACK: full range of motion, no CVA tenderness. EXTREMITIES: full range of motion of all extremities. No redness, no swelling. NEURO: alert and oriented x 3, . Right-sided mouth droop and inability to close the right eye. She is able to raise the right eyebrow up. Upper and lower extremities are equal throughout. Normal sensation. No focal deficits, full range of motion of all extremities. normal finger to nose. No pronator drift. NIH stroke score of 2. PYSCH: appropriate mood, affect. Patient is cooperative. SKIN: pink, warm, dry, no rash. Course - Re-evaluation Re-evalutation: 01/15/19 14:01 Patient is nontoxic-appearing with stable vitals. Patient here with complaints of right-sided facial droop which started yesterday morning when she woke up. No arm or leg symptoms. On exam she is noted to have right-sided facial droop, extremity exam is normal. The remainder of her neuro exam is normal. NIH stroke score is 2. EKG is unremarkable. Labs are unremarkable. Chest x-ray negative. CT of the brain shows abnormality in the left frontal lobe consistent with possible ischemic changes. Cannot completely rule out subacute CVA. Due to the fact that the patient has an abnormal CT with abnormal neuro findings, I do believe the patient requires admission to the hospital. Her primary care doctor is Dr. FRANCO. I have placed a call to the hospitalist for admission. Currently awaiting return phone call. Family is aware of plan for admission. 01/15/19 14:[address] Urban who has accepted admission to the hospital for possible CVA. Discussed this with the patient and her . Patient will be admitted to the hospital for further evaluation and management. - Vital Signs Vital signs: Temp Pulse Resp BP Pulse Ox 97.8 F 59 L 14 158/85 H 96 01/15/19 11:20 01/15/19 11:20 01/15/19 13:01 01/15/19 13:01 01/15/19 13:06 - Laboratory Result Diagrams: 01/15/19 12:28 01/15/19 12:28 Laboratory results interpreted by me: 01/15/19 01/15/19 01/15/19 12:28 12:28 12:28 Seg Neutrophils % 39.3 L Eosinophils % 6.9 H APTT 38.8 H Glucose 183 H AST 81 H ALT 96 H Alkaline Phosphatase 149 H - Diagnostic Test Radiology reviewed: Image reviewed, Reports reviewed - Chest x-ray with no acute findings. Head CT shows attenuation in the left frontal could represent subacute ischemic changes. Recommend MRI. - EKG Interpretation by Me EKG shows normal: Sinus rhythm When compared to previous EKG there are: Other - Normal sinus rhythm. First- degree AV block. Right bundle branch block. No ST or T wave elevation or depression, no STEMI. No change from previous EKG. Discharge - Discharge Clinical Impression: CVA (cerebral vascular accident) Qualifiers: CVA mechanism: unspecified Qualified Code(s): I63.9 - Cerebral infarction, unspecified Condition: Stable Disposition: ADMITTED INPATIENT Admitting Provider: Rajni (Hospitalist) Unit Admitted: IMCU Referrals: BESS FRANCO MD [Primary Care Provider] - Follow up as needed
--- NOTE | 2019-01-15 13:57 | ER Document Report ---
ED NIH Stroke Scale - NIH Stroke Scale *: 1. NIH scale should be completed with appropriate accompanying assessment tools. *: 2. The NIH should reflect what the patient is capable of doing and should not be coached by the clinician. 1a. Level of Consciousness: 0=Alert;keenly responsive -: 1=Drowsy -: 2=Obtunded -: 3=Coma/unresponsive or reflex to noxious stimuli. 1a. Responses: 0 1b. Orientation Questions: a. What month is it? -: b. How old are you? -: 0=Answers both questions correctly. -: 1=Answers one question correctly or patient is intubated or has orotracheal trauma. -: 2=Answers neither question correctly. 1b. Responses: 0 1c. Response to commands: a. Open and close eyes? -: b. Truck Washer and release hand? -: Credit is given despite weakness. Demonstration of task is permitted. Substitute command if hands cannot be used. -: 0=Performs both tasks correctly -: 1=Performs one task correctly -: 2=Performs neither task correctly 1c. Responses: 0 2. Gaze: Establish eye contact and instruct patient to "Follow my finger" -: 0=Normal -: 1=Partial gaze palsy. Gaze is abnormal in one or both eyes, but where forced deviation or total gaze paresis is not present. -: 2=Forced deviation or total gaze paresis. 2. Responses: 0 3. Visual Shields: Sees fingers in all four quadrants. -: 0=No visual loss. -: 1=Partial hemianopsia. -: 2=Complete hemianopsia. -: 3=Bilateral hemianopsia (including Cortical blindness) 3. Responses: 0 4. Facial Movement: Instruct patient to: -: a. Show me your teeth -: b. Raise your eyebrows -: c. Close your eyes -: d. Smile -: 0=Normal symmetrical movement -: 1=Minor paralysis (flattened nasolabial fold, asymmetry on smiling). -: 2=Partial paralysis (total or near total paralysis of lower face). -: 3=Complete paralysis of upper and lower face 4. Responses: 2 5. Motor functions (left arm): Alternate sides and extend each arm with palms down (90 degrees if sitting or 45 degrees for supine). -: 0=No drift;limb holds for full 10 seconds. -: 1=Drift; limb holds but drifts down before full 10 seconds, but does not hit bed. -: 2=Some effort against gravity; limb cannot get to or maintain position. -: 3=No effort against gravity; limb falls. -: 4=No movement. -: UN=Amputation, joint fusion, explain in comments. 5. Responses (left arm): 0 5. Motor Functions (right arm): Alternate sides and extend each arm with palms down (90 degrees if sitting or 45 degrees for supine). -: 0=No drift;limb holds for full 10 seconds. -: 1=Drift; limb holds but drifts down before full 10 seconds, but does not hit bed. -: 2=Some effort against gravity; limb cannot get to or maintain position. -: 3=No effort against gravity; limb falls. -: 4=No movement. -: UN=Amputation, joint fusion, explain in comments. 5. Responses (right arm): 0 6. Motor Functions (left leg): With patient lying supine, alternate sides and extend each leg (30 degrees always while supine). -: 0=No drift, leg holds position for full 5 seconds -: 1=Drift; leg falls before full 5 seconds but does not hit bed. -: 2=Some effort against gravity, leg falls to bed but some effort against gravity. -: 3=No effort against gravity, leg falls to bed immediately. -: 4=No movement. -: UN=Amputation, joint fusion; explain in comments. 6. Responses (left leg): 0 6. Motor Functions (right leg): With patient lying supine, alternate sides and extend each leg (30 degrees always while supine). -: 0=No drift, leg holds position for full 5 seconds -: 1=Drift; leg falls before full 5 seconds but does not hit bed. -: 2=Some effort against gravity, leg falls to bed but some effort against gravity. -: 3=No effort against gravity, leg falls to bed immediately. -: 4=No movement. -: UN=Amputation, joint fusion; explain in comments. 6. Responses (right leg): 0 7. Limb Ataxia: With eyes open instruct patient to: -: a. "Touch your finger to your nose". -: b. "Touch your heel to your kimble" -: 0=Absent -: 1=Present in one limb. -: 2=Present in two limbs. -: UN=Amputation or joint fusion; explain in comments. 7. Responses: 0 8. Sensory: Test sensation using pinprick or noxious stimuli. Test as many body parts as possible. -: 0=Normal;no sensory loss -: 1=Mile to moderate sensory loss (patient feels pin prick but is less sharp on affected side). -: 2=Severe or total sensory loss. 8. Responses: 0 9. Best Language: Instruct patient to: -: a. "Describe what you see in this picture." -: b. "Name the items in this picture." -: c. "Read these sentences." -: 0=No aphasia, normal -: 1=Mild to moderate aphasia. -: 2=Severe aphasia -: 3=Mute, global aphasia, no usable speech or auditory comprehension. 9. Responses: 0 10. Articulation, Dysarthia: Instruct patient to: -: "Read these words" or "Repeat these words" -: 0=Normal -: 1=Mild to moderate; patient may slur some words but can be understood without difficulty. -: 2=Severe; patients speech so slurred as to be unintelligible in the absence of dysphasia. -: UN=Intubated or other physical barrier, explain in comments. 10. Responses: 0 11. Extinction or inattention: 0=No abnormality -: 1= Visual, tactile, auditory, spatial, or personal inattention or extinction to bilateral simulation in one or the sensory modalities. -: 2=Profound wagner-inattention or wagner-inattention to more than one modality; does not recognize own hand. 11. Responses: 0 Total Score: 2
[2019-01-15] MEDS ORDERED: HYDRALAZINE HCL INJ/PF 20 MG/1 ML SDV IV PRN (15:55)
[2019-01-15] MEDS ORDERED: DEXTROSE 50%-WATER 25 GM/50 ML DISP.SYRIN IV PRN ×2 (15:56)
[2019-01-15] MEDS ORDERED: DEXTROSE 40% GEL 15 GM TUBE PO PRN ×2 (15:56)
[2019-01-15] MEDS ORDERED: GLUCAGON,HUMAN RECOMB 1 MG INJ IM PRN (15:56)
--- NOTE | 2019-01-15 17:18 | PDOC H&P ---
History of Present Illness Admission Date/PCP: 01/15/19 15:03 BESS FRANCO MD History of Present Illness: ROSHNI GALLEGOS is a 78 year old female with a PMH of CAD with prior multiple stenting (5 stents with the ast one being in January 2018), IDDM, and hypertension who was brought in due to right sided facial droop. Patient was apparently fine but woke up yesterday morning at 7:30 and noticed she had a right sided facial droop. She says she had some vague headache 3 days ago. Denies weakness, numbness or tingling sensation. Denies chest pain or SOB. No dizziness or vertigo. Past Medical History Cardiac Medical History: Reports: Myocardial Infarction, Hypertension Endocrine Medical History: Reports: Diabetes Mellitus Type 1 Past Surgical History Past Surgical History: Reports: Cardiac Catheterization - stent x1, Cholecystectomy, Orthopedic Surgery - back Social History Smoking Status: Never Smoker Family History Family History: Reviewed & Not Pertinent Parental Family History Reviewed: Yes - no premature CAD Children Family History Reviewed: No Sibling(s) Family History Reviewed.: No Medication/Allergy Home Medications: Aspirin [Aspirin 81 mg Chewable Tablet] 81 mg PO QAM 10/11/17 Atorvastatin Calcium [Lipitor 40 mg Tablet] 40 mg PO QPM 10/11/17 Cholecalciferol (Vitamin D3) [Vitamin D3 5000 unit Capsule] 5,000 mg PO DAILY 10/11/17 Gabapentin 200 mg PO Q8 10/11/17 Glimepiride 4 mg PO BIDBS 10/11/17 Insulin Glargine,Hum.rec.anlog [Lantus Insulin 100 Unit/mL] unit SQ 10/11/17 Metformin HCl 1,000 mg PO BIDBS 10/11/17 Ticagrelor [Brilinta] 90 mg PO Q12 10/11/17 Furosemide [Lasix 20 mg Tablet] 20 mg PO QAM 01/15/19 Isosorbide Mononitrate [Imdur 30 mg Tablet.er] 30 mg PO DAILY 01/15/19 Meloxicam [Mobic] 15 mg PO DAILYP PRN 01/15/19 Montelukast Sodium [Singulair 10 mg Tablet] 10 mg PO QHS 01/15/19 Allergies/Adverse Reactions: Sulfa (Sulfonamide Antibiotics) Allergy (Verified 01/15/19 11:11) Review of Systems All systems: reviewed and no additional remarkable complaints except as stated - as mentioned in HPI Physical Exam Vital Signs: Temp Pulse Resp BP Pulse Ox 97.8 F 59 L 16 192/72 H 100 01/15/19 11:20 01/15/19 11:20 01/15/19 15:02 01/15/19 15:02 01/15/19 15:02 Intake & Output 01/14/19 01/15/19 01/16/19 06:59 06:59 06:59 Weight 197 lb 12.074 oz General appearance: PRESENT: no acute distress, well-developed, well-nourished Head exam: PRESENT: atraumatic, normocephalic Eye exam: PRESENT: conjunctiva pink, EOMI, PERRLA. ABSENT: scleral icterus Ear exam: PRESENT: normal external ear exam Mouth exam: PRESENT: moist, tongue midline Neck exam: ABSENT: carotid bruit, JVD, lymphadenopathy, thyromegaly Respiratory exam: PRESENT: clear to auscultation magdaleno. ABSENT: rales, rhonchi, wheezes Cardiovascular exam: PRESENT: RRR. ABSENT: diastolic murmur, rubs, systolic murmur Pulses: PRESENT: normal dorsalis pedis pul GI/Abdominal exam: PRESENT: normal bowel sounds, soft. ABSENT: distended, guarding, mass, organolmegaly, rebound, tenderness Rectal exam: PRESENT: deferred Neurological exam: PRESENT: alert, awake, oriented to person, oriented to place, oriented to time, oriented to situation. ABSENT: CN II-XII grossly intact - right sided facial droop, motor sensory deficit Results Laboratory Results: 01/15/19 12:28 01/15/19 12:28 01/15/19 01/15/19 12:28 12:28 WBC 5.9 RBC 4.42 Hgb 13.5 Hct 40.2 MCV 91 MCH 30.5 MCHC 33.5 RDW 13.8 Plt Count 296 Seg Neutrophils % 39.3 L Lymphocytes % 39.7 Monocytes % 12.8 Eosinophils % 6.9 H Basophils % 1.3 Absolute Neutrophils 2.3 Absolute Lymphocytes 2.3 Absolute Monocytes 0.8 Absolute Eosinophils 0.4 Absolute Basophils 0.1 Sodium 138.9 Potassium 4.6 Chloride 100 Carbon Dioxide 27 Anion Gap 12 BUN 15 Creatinine 0.86 Est GFR ( Amer) > 60 Est GFR (Non-Af Amer) > 60 Glucose 183 H Calcium 10.0 Total Bilirubin 1.1 AST 81 H ALT 96 H Alkaline Phosphatase 149 H Total Protein 7.7 Albumin 4.1 01/15/19 01/15/19 12:28 12:28 Creatine Kinase 77 CK-MB (CK-2) 1.64 Troponin I < 0.012 Impressions: Chest X-Ray 01/15/19 11:52 IMPRESSION: No acute findings. Head CT 01/15/19 11:52 IMPRESSION: Areas of low density in the white matter, greatest in the left frontotemporal area consistent with micro-vascular ischemic change, age undetermined, given lack of comparison images cannot exclude subacute lacunar infarct. Consider MRI to further assess. No hemorrhage. No midline shift. EVIDENCE OF ACUTE STROKE: Possible LEFT MCA Assessment and Plan - Diagnosis (1) CVA (cerebral vascular accident) Qualifiers: CVA mechanism: unspecified Qualified Code(s): I63.9 - Cerebral infarction, unspecified Is this a current diagnosis for this admission?: Yes Plan: Likely subacute CVA. CT head shows ischemic changes greatest on left frontotemporal area of undetermined age. Wll pursue an MRI. Carotid doppler. Tele monitoring. Resume aspirin, Brlinta and statin. (2) CAD (coronary artery disease) Is this a current diagnosis for this admission?: Yes Plan: Stable. Resume home meds. (3) IDDM (insulin dependent diabetes mellitus) Is this a current diagnosis for this admission?: Yes Plan: Resume inulin regimen. (4) HTN (hypertension) Is this a current diagnosis for this admission?: Yes Plan: Blood pressures running high in the 190-200 systolic. Resume home meds. Will titrate appropriately. Add hydralazine prn. - Time Time Spent with patient: 25-34 minutes
--- NOTE | 2019-01-15 17:20 | ADVANCED CARE ---
- Diagnosis (1) CVA (cerebral vascular accident) Diagnosis Current: Yes (2) CAD (coronary artery disease) Diagnosis Current: Yes (3) IDDM (insulin dependent diabetes mellitus) Diagnosis Current: Yes (4) HTN (hypertension) Diagnosis Current: Yes Resuscitation Status: Do Not Resuscitate Discussion: Discussed with patient and daughter on the bedside. She says she has an advanced directive and that she is a DNR/DNI. She says she does not want chest compressions, defibrillation or intubation if the need arises. She says her , Phillip is her surrogate decision maker along with her daughter.
[2019-01-15] MEDS: INSULIN LISPRO 100 UNIT/ML 3 ML VIAL SUBCUT SCH ×2 (17:45→21:27)
--- NOTE | 2019-01-15 17:46 | RADIOLOGY REPORT (SQ) ---
EXAM DESCRIPTION: MRI HEAD WITHOUT COMPLETED DATE/TIME: 01/15/2019 5:32 pm REASON FOR STUDY: right facial droop E78.49 OTHER HYPERLIPIDEMIA COMPARISON: None. TECHNIQUE: Multiplanar imaging includes non-contrasted T1, T2, FLAIR, and diffusion with ADC map seq uences. Images stored on PACS. LIMITATIONS: None. FINDINGS: ANATOMY: No anomalies. Normal vascular flow voids. Pituitary fossa normal. CSF SPACES: Atrophy induced prominence of ventricles and CSF spaces. CEREBRUM: High signal intensity lesions scattered throughout the white matter on FLAIR imaging with d istribution suggesting micro-vascular ischemic changes. No evidence of hemorrhage, mass, or extraaxi al fluid collection. POSTERIOR FOSSA: No signal alteration. No hemorrhage. No edema, masses or mass effect. Internal shelley tory canals, cerebello-pontine angles, mastoids normal. DIFFUSION IMAGING: Negative for acute or sub-acute infarction. ORBITS: No masses. Globes normal. PARANASAL SINUSES: No fluid levels. Mucosa normal. OTHER: No other significant finding. IMPRESSION: Negative for acute or sub-acute infarction. EVIDENCE OF ACUTE STROKE: NO. TECHNICAL DOCUMENTATION: JOB ID: [id number] 2010 [employer]- All Rights Reserved Reading location - IP/workstation name: [email or web address]
[2019-01-15] MEDS ORDERED: ATORVASTATIN CALCIUM 40 MG TABLET PO SCH (18:00)
[2019-01-15] MEDS ORDERED: GABAPENTIN 100 MG CAPSULE PO SCH (18:00)
[2019-01-15 18:08] LABS: CHOLESTEROL 203.37 mg/dL (0-200); TRIGLYCERIDES 262 mg/dL (<150)
[2019-01-15 18:18] LABS: DIRECT LDL 99 mg/dL (<100)
[2019-01-15 18:22] LABS: VLDL CHOLESTEROL 52.4 mg/dL (10-31)
[2019-01-15] MEDS: GABAPENTIN 300 MG CAPSULE PO SCH (21:48)
[2019-01-15] MEDS: HEPARIN SOD (PORCINE) 5,000 UNIT/ML 1 ML SYRINGE SUBCUT SCH (21:49)
[2019-01-15] MEDS: TICAGRELOR 90 MG TABLET PO SCH (21:49)
[2019-01-15] MEDS ORDERED: INSULIN GLARGINE,HUM.REC.ANLOG 1,000 UNIT/10 ML VIAL SUBCUT SCH (22:00)
--- NOTE | 2019-01-15 22:41 | EKG REPORT ---
SEVERITY:- ABNORMAL ECG - SINUS RHYTHM FIRST DEGREE AV BLOCK RIGHT BUNDLE BRANCH BLOCK : Confirmed by: Melany Solano MD 15-Jan-2019 22:41:20
[2019-01-16] MEDS: GABAPENTIN 300 MG CAPSULE PO SCH (06:27)
[2019-01-16] MEDS ORDERED: LOSARTAN POTASSIUM 50 MG TABLET PO SCH (08:00)
[2019-01-16] MEDS ORDERED: ASPIRIN 81 MG TABLET, CHEWABLE PO SCH (08:00)
[2019-01-16 08:01] VITALS: BP 135/63
--- NOTE | 2019-01-16 08:31 | RADIOLOGY REPORT (SQ) ---
EXAM DESCRIPTION: CAROTID DOPPLER COMPLETED DATE/TIME: 01/15/2019 8:01 pm REASON FOR STUDY: CVA E78.49 OTHER HYPERLIPIDEMIA COMPARISON: None. TECHNIQUE: Grayscale ultrasound, Doppler velocity and spectra, and color Doppler images acquired of the extra-cranial carotid and vertebral arteries. Images stored on PACS. LIMITATIONS: None. FINDINGS: RIGHT CAROTID CCA Velocities: Within normal limits. ICA Velocities Peak systolic 1.3 m/s. End diastolic 0.32 m/s. Proximal ICA/CCA peak systolic ratio 1.4. Soft plaque. No significant luminal compromise. LEFT CAROTID CCA Velocities: Within normal limits. ICA Velocities Peak systolic 1.1 m/s. End diastolic 0.3 m/s. Proximal ICA/CCA peak systolic ratio 1.2. Mild plaque. No significant luminal compromise. VERTEBRAL ARTERIES: Antegrade flow. Normal waveforms. SUBCLAVIAN ARTERIES: No finding. OTHER: No other significant finding. IMPRESSION: 1. Right carotid velocities are slightly elevated, possibly due to tortuosity. While there is mild p laque bilaterally, no significant luminal narrowing appreciated. Surveillance followup carotid Doppl er studies over time will prove helpful. COMMENT: Quality ID #[id number]: Velocity criteria are extrapolated from the diameter data as defined by t he Society of Radiologists in Ultrasound Consensus Conference. Radiology 2003: 229; 340-346. TECHNICAL DOCUMENTATION: JOB ID: [id number] [employer]- All Rights Reserved Reading location - IP/workstation name: [email or web address]
[2019-01-16] MEDS: INSULIN LISPRO 100 UNIT/ML 3 ML VIAL SUBCUT SCH (08:37)
[2019-01-16] MEDS: TICAGRELOR 90 MG TABLET PO SCH (09:13)
[2019-01-16] MEDS ORDERED: METOPROLOL SUCCINATE 25 MG TAB.SR.24H PO SCH (10:00)
[2019-01-16] MEDS ORDERED: CHOLECALCIFEROL (D3) 1,000 UNIT TABLET PO SCH (10:00)
[2019-01-16] MEDS ORDERED: CHOLECALCIFEROL PO SCH (10:00)
[2019-01-16] MEDS ORDERED: [UNRECOGNIZED DRUG - OTHER] PO SCH (10:00)
[2019-01-16] MEDS: HEPARIN SOD (PORCINE) 5,000 UNIT/ML 1 ML SYRINGE SUBCUT SCH (11:31)
--- NOTE | 2019-01-16 15:21 | PDOC DISCHARGE SUMMARY ---
General - Admit/Disc Date/PCP Admission Date/Primary Care Provider: 01/15/19 15:03 BESS FRANCO MD Discharge Date: 01/16/19 - Discharge Diagnosis (1) Facial droop Is this a current diagnosis for this admission?: Yes (2) Lamas's palsy Is this a current diagnosis for this admission?: Yes (3) CAD (coronary artery disease) Is this a current diagnosis for this admission?: Yes (4) IDDM (insulin dependent diabetes mellitus) Is this a current diagnosis for this admission?: Yes (5) HTN (hypertension) Is this a current diagnosis for this admission?: Yes - Additional Information Resuscitation Status: Do Not Resuscitate Discharge Diet: As Tolerated Discharge Activity: Activity As Tolerated Prescriptions: Azithromycin [Zithromax] 500 mg IV DAILY #3 vial Losartan Potassium [Cozaar 50 mg Tablet] 50 mg PO QAM #30 tablet Metoprolol Succinate [Toprol Xl 25 mg Tab.sr] 25 mg PO DAILY #30 tab.sr.24h Prednisone [Deltasone 10 mg Tablet] 10 mg PO BID 5 Days #10 tablet Home Medications: Atorvastatin Calcium [Lipitor 40 mg Tablet] 40 mg PO QPM 10/11/17 Cholecalciferol (Vitamin D3) [Vitamin D3 5000 unit Capsule] 5,000 mg PO DAILY 10/11/17 Gabapentin 200 mg PO QHS 10/11/17 Glimepiride 4 mg PO BIDBS 10/11/17 Insulin Glargine,Hum.rec.anlog [Lantus Insulin 100 Unit/mL] 18 unit SQ QHS 10/11/17 Metformin HCl 2,000 mg PO QAM 10/11/17 Ticagrelor [Brilinta] 90 mg PO Q12 10/11/17 Aspirin [Ecotrin 81 mg EC Tablet] 81 mg PO DAILY 01/15/19 Furosemide [Lasix 20 mg Tablet] 20 mg PO QAM 01/15/19 Gabapentin [Neurontin 100 mg Capsule] 100 mg PO DAILY 01/15/19 Isosorbide Mononitrate [Imdur 30 mg Tablet.er] 30 mg PO DAILY 01/15/19 Azithromycin [Zithromax] 500 mg IV DAILY #3 vial 01/16/19 Losartan Potassium [Cozaar 50 mg Tablet] 50 mg PO QAM #30 tablet 01/16/19 Metoprolol Succinate [Toprol Xl 25 mg Tab.sr] 25 mg PO DAILY #30 tab.sr.24h 01/16/19 Prednisone [Deltasone 10 mg Tablet] 10 mg PO BID 5 Days #10 tablet 01/16/19 History of Present Illness History of Present Illness: ROSHNI GALLEGOS is a 78 year old female with a PMH of CAD with prior multiple stenting (5 stents with the ast one being in January 2018), IDDM, and hypertension who was brought in due to right sided facial droop. Patient was apparently fine but woke up yesterday morning at 7:30 and noticed she had a right sided facial droop. She says she had some vague headache 3 days ago. Denies weakness, numbness or tingling sensation. Denies chest pain or SOB. No dizziness or vertigo. Hospital Course Hospital Course: This is a 78 year old female with a PMH of CAD with prior multiple stenting (5 stents with the last one being in January 2018), IDDM, and hypertension who was brought in due to right sided facial droop. She was admitted as OBS for possible subacute CVA. MRI was negative for CVA. On further questioning, she did later reveal she had some nasal congestion and right ear fullness a week ago. She likely had recent viral infection and developed a Lamas's palsy. 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 Otoscopic exam shows very minimal erythema on the right ear canal. She will be discharged on a low dose steroids and see if it improves her right facial droop and will closely follow up with PCP. Physical Exam Vital Signs: Temp Pulse Resp BP Pulse Ox 97.7 F 69 16 135/63 H 100 01/16/19 11:04 01/16/19 11:04 01/16/19 11:04 01/16/19 11:04 01/16/19 11:04 Intake & Output 01/15/19 01/16/19 01/17/19 06:59 06:59 06:59 Weight 196 lb 3.382 oz General appearance: PRESENT: no acute distress, well-developed, well-nourished Head exam: PRESENT: atraumatic, normocephalic Eye exam: PRESENT: conjunctiva pink, EOMI, PERRLA. ABSENT: scleral icterus Ear exam: PRESENT: normal external ear exam Mouth exam: PRESENT: moist, tongue midline Neck exam: ABSENT: carotid bruit, JVD, lymphadenopathy, thyromegaly Respiratory exam: PRESENT: clear to auscultation magdaleno. ABSENT: rales, rhonchi, wheezes Cardiovascular exam: PRESENT: RRR. ABSENT: diastolic murmur, rubs, systolic murmur Pulses: PRESENT: normal dorsalis pedis pul GI/Abdominal exam: PRESENT: normal bowel sounds, soft. ABSENT: distended, guarding, mass, organolmegaly, rebound, tenderness Rectal exam: PRESENT: deferred Neurological exam: PRESENT: alert, awake, oriented to person, oriented to place, oriented to time, oriented to situation. ABSENT: CN II-XII grossly intact - +right facial droop, motor sensory deficit Results Laboratory Results: 01/15/19 12:28 01/15/19 12:28 01/15/19 12:28 Triglycerides 262 H Cholesterol 203.37 H LDL Cholesterol Direct 99 VLDL Cholesterol 52.4 H HDL Cholesterol 38 L 01/15/19 01/15/19 12:28 12:28 Creatine Kinase 77 CK-MB (CK-2) 1.64 Troponin I < 0.012 Impressions: Chest X-Ray 01/15/19 11:52 IMPRESSION: No acute findings. Head CT 01/15/19 11:52 IMPRESSION: Areas of low density in the white matter, greatest in the left frontotemporal area consistent with micro-vascular ischemic change, age undetermined, given lack of comparison images cannot exclude subacute lacunar infarct. Consider MRI to further assess. No hemorrhage. No midline shift. EVIDENCE OF ACUTE STROKE: Possible LEFT MCA Head MRI 01/15/19 15:53 IMPRESSION: Negative for acute or sub-acute infarction. EVIDENCE OF ACUTE STROKE: NO. Carotid Doppler Study 01/15/19 15:55 IMPRESSION: 1. Right carotid velocities are slightly elevated, possibly due to tortuosity. While there is mild plaque bilaterally, no significant luminal narrowing appreciated. Surveillance followup carotid Doppler studies over time will prove helpful. Qualifiers - * PATIENT BEING DISCHARGED WITH ANY OF THE FOLLOWING DIAGNOSIS: No Acute Heart Failure Is this a Heart Failure Patient?: No
== END 2019-01-16 11:30 | disposition home or self-care (01) ==
LOC: ER 11:10 → INTOOBSV 15:03 → EH 15:03 → 3N 19:10
PROVIDERS: ADMIT Internal Medicine; ATTEND Internal Medicine
DX: G51.0 Bell's palsy (principal); I25.10 Atherosclerotic heart disease of native coronary artery without angina pectoris; E10.9 Type 1 diabetes mellitus without complications; I10 Essential (primary) hypertension; I25.2 Old myocardial infarction; L53.8 Other specified erythematous conditions; Z79.4 Long term (current) use of insulin; Z66 Do not resuscitate; Z79.899 Other long term (current) drug therapy; Z95.5 Presence of coronary angioplasty implant and graft; Z90.49 Acquired absence of other specified parts of digestive tract
CPT/HCPCS: 93005; 99285; 36415; 82553; 82962 ×2; 82550; 85025; 85610; 85730; 80053; 84484; 83036; 80061; 93880; 70551; 71045; 70450; 93010; G0378 ×3; A9270 ×10; J1644; J3490 ×2; J1815